=== PATIENT | female | born 1995 | race Caucasian/White ===

== ENCOUNTER 2017-04-21 04:43 | Emergency (ER) | payer MEDICAID, OTHER ==
[~2017-04-21] VITALS: Ht 160 cm; Wt 52.0 kg
[~2017-04-21 04:43] MED LIST: IBUP800T23 PO; PENI500T PO; TRAM50 PO
[2017-04-21 05:07] VITALS: BP 113/86; PULSE 92; RESP 20; TEMP 97.4; O2SAT 100
--- NOTE | 2017-04-21 05:37 | PD ---
HPI Chief Complaint: Medical Clearance Time Seen by Provider: 04:55 Travel History International Travel<30 days: No Contact w/Intl Traveler<30days: No Traveled to known affect area: No History of Present Illness HPI Patient is a 22-year-old female brought into the emergency department by the [place] [facility] [employer] [facility] due to safety after she was found unresponsive in the back of an Uber. Initially patient did not respond to multiple attempts to wake her up. Sternal rubs were performed and she fell on the became responsive. When she woke up she was disoriented and unaware where she was. She was unable able to answer basic questions and then became aggressive. Patient reports taking Depakote, lithium, Lexapro, Seroquel and Vyvanse this evening. She also reports that she had 3 shots of alcohol. Patient was deemed unable to make logical decisions for herself, she initially refused to go to the hospital with EMS and at that time she was [place] acted by the police. Patient denies any suicidal or homicidal ideations. She denies any physical complaints at this time. She reports a past medical history significant for schizophrenia, bipolar disorder, depression. She has a remote history of drug abuse 4-5 years ago, she denies any current use of illicit drugs. [facility] Past Medical History Bipolar Disorder: Yes Depression: Yes Diminished Hearing: No Schizophrenia: Yes ?: Not LMP: unknown : 2 Para: 2 Past Surgical History Gynecologic Surgery: Yes Tonsillectomy: Yes (WITH ADDENOIDS REMOVED) Social History Alcohol Use: Yes Tobacco Use: Yes (smoking 10 per day.) Substance Use: Yes (history of) Allergies-Medications (Allergen,Severity, Reaction): Coded Allergies: Benadryl (Verified Allergy, Severe, hives, 04/21/17) Reported Meds & Prescriptions Reported Meds & Active Scripts Active Ultram (Tramadol HCl) 50 Mg Tab 50 Mg PO Q6 PRN FOR PAIN Ibuprofen 800 Mg Tab 800 Mg PO Q6 PRN Pen Vk (Penicillin V Potassium) 500 Mg Tab 500 Mg PO QID Review of Systems ROS Limitations: Intoxication Except as stated in HPI: all other systems reviewed are Neg Psychiatric: Positive: Mood Disorder Physical Exam Narrative GENERAL: Thin, well-developed, alert, intoxicated-appearing female. Resting comfortably in no acute distress. SKIN: Focused skin assessment warm/dry. HEAD: Atraumatic. Normocephalic. EYES: Pupils equal and round. No scleral icterus. No injection or drainage. ENT: No nasal bleeding or discharge. Mucous membranes pink and moist. NECK: Trachea midline. No JVD. CARDIOVASCULAR: Regular rate and rhythm. No murmur appreciated. RESPIRATORY: No accessory muscle use. Clear to auscultation. Breath sounds equal bilaterally. GASTROINTESTINAL: Abdomen soft, non-tender, nondistended. Hepatic and splenic margins not palpable. MUSCULOSKELETAL: No obvious deformities. No clubbing. No cyanosis. No edema. NEUROLOGICAL: Awake and alert. No obvious cranial nerve deficits. Motor grossly within normal limits. Normal speech. PSYCHIATRIC: Defiant mood and affect; insight and judgment normal. Data Data Last Documented VS Vital Signs Date Time Temp Pulse Resp B/P Pulse Ox O2 Delivery O2 Flow Rate FiO2 04/21/17 11:25 88 16 92/56 100 Room Air 04/21/17 08:43 97.6 Orders Complete Blood Count With Diff (04/21/17 05:01) Comprehensive Metabolic Panel (04/21/17 05:01) Urinalysis - C+S If Indicated (04/21/17 05:01) Valproic Acid (Depakene) (04/21/17 05:01) [place] (Li) (04/21/17 05:01) Drug Screen, Random Urine (04/21/17 05:01) Alcohol (Ethanol) (04/21/17 05:01) Salicylates (Aspirin) (04/21/17 05:01) Tylenol (Acetaminophen) (04/21/17 05:01) Iv Access Insert/Monitor (04/21/17 06:32) Sodium Chlor 0.9% 1000 Ml Inj (Ns 1000 M (04/21/17 06:45) Sodium Chlor 0.9% 1000 Ml Inj (Ns 1000 M (04/21/17 06:45) Diet Regular Basic (04/21/17 Breakfast) Labs Laboratory Tests Test 04/21/17 05:00 White Blood Count 8.7 TH/MM3 Red Blood Count 4.89 MIL/MM3 Hemoglobin 14.0 GM/DL Hematocrit 42.5 % Mean Corpuscular Volume 86.9 FL Mean Corpuscular Hemoglobin 28.7 PG Mean Corpuscular Hemoglobin 33.1 % Concent Red Cell Distribution Width 15.6 % Platelet Count 372 TH/MM3 Mean Platelet Volume 7.4 FL Neutrophils (%) (Auto) 32.5 % Lymphocytes (%) (Auto) 58.8 % Monocytes (%) (Auto) 7.6 % Eosinophils (%) (Auto) 0.6 % Basophils (%) (Auto) 0.5 % Neutrophils # (Auto) 2.8 TH/MM3 Lymphocytes # (Auto) 5.1 TH/MM3 Monocytes # (Auto) 0.7 TH/MM3 Eosinophils # (Auto) 0.1 TH/MM3 Basophils # (Auto) 0.0 TH/MM3 CBC Comment AUTO DIFF Differential Total Cells 100 Counted Neutrophils % (Manual) 39 % Band Neutrophils % 1 % Lymphocytes % 56 % Monocytes % 3 % Basophils % 1 % Neutrophils # (Manual) 3.5 TH/MM3 Differential Comment FINAL DIFF MANUAL Atypical Lymphocytes % Platelet Estimate NORMAL Platelet Morphology Comment NORMAL Ovalocytes 1+ Urine Color LIGHT-YELLOW Urine Turbidity CLEAR Urine pH 6.0 Urine Specific [place] 1.004 Urine Protein NEG mg/dL Urine Glucose (UA) NEG mg/dL Urine Ketones NEG mg/dL Urine Occult Blood NEG Urine Nitrite NEG Urine Bilirubin NEG Urine Urobilinogen LESS THAN 2.0 MG/DL Urine Leukocyte Esterase NEG Urine WBC 1 /hpf Urine Squamous Epithelial 1 /hpf Cells Microscopic Urinalysis Comment CULT NOT INDICATED Sodium Level 140 MEQ/L Potassium Level 3.6 MEQ/L Chloride Level 106 MEQ/L Carbon Dioxide Level 27.3 MEQ/L Anion Gap 7 MEQ/L Blood Urea Nitrogen 6 MG/DL Creatinine 0.66 MG/DL Estimat Glomerular Filtration 114 ML/MIN Rate Random Glucose 98 MG/DL Calcium Level 8.5 MG/DL Total Bilirubin 0.3 MG/DL Aspartate Amino Transf 29 U/L (AST/SGOT) Alanine Aminotransferase 24 U/L (ALT/SGPT) Alkaline Phosphatase 133 U/L Total Protein 8.0 GM/DL Albumin 4.1 GM/DL Salicylates Level 3.8 MG/DL Urine Opiates Screen NEG Acetaminophen Level LESS THAN 2.0 MCG/ML Urine Barbiturates Screen NEG Valproic Acid (Depakene) Level 7 MCG/ML Urine Amphetamines Screen NEG Urine Benzodiazepines Screen NEG [place] Level 0.1 MEQ/L Urine Cocaine Screen NEG Urine Cannabinoids Screen NEG Ethyl Alcohol Level 353 MG/DL MDM Medical Decision Making Medical Screen Exam Complete: Yes Emergency Medical Condition: Yes Medical Record Reviewed: Yes Interpretation(s) Laboratory Tests Test 04/21/17 05:00 White Blood Count 8.7 TH/MM3 Red Blood Count 4.89 MIL/MM3 Hemoglobin 14.0 GM/DL Hematocrit 42.5 % Mean Corpuscular Volume 86.9 FL Mean Corpuscular Hemoglobin 28.7 PG Mean Corpuscular Hemoglobin 33.1 % Concent Red Cell Distribution Width 15.6 % Platelet Count 372 TH/MM3 Mean Platelet Volume 7.4 FL Neutrophils (%) (Auto) 32.5 % Lymphocytes (%) (Auto) 58.8 % Monocytes (%) (Auto) 7.6 % Eosinophils (%) (Auto) 0.6 % Basophils (%) (Auto) 0.5 % Neutrophils # (Auto) 2.8 TH/MM3 Lymphocytes # (Auto) 5.1 TH/MM3 Monocytes # (Auto) 0.7 TH/MM3 Eosinophils # (Auto) 0.1 TH/MM3 Basophils # (Auto) 0.0 TH/MM3 CBC Comment AUTO DIFF Urine Color LIGHT-YELLOW Urine Turbidity CLEAR Urine pH 6.0 Urine Specific [place] 1.004 Urine Protein NEG mg/dL Urine Glucose (UA) NEG mg/dL Urine Ketones NEG mg/dL Urine Occult Blood NEG Urine Nitrite NEG Urine Bilirubin NEG Urine Urobilinogen LESS THAN 2.0 MG/DL Urine Leukocyte Esterase NEG Urine WBC 1 /hpf Urine Squamous Epithelial 1 /hpf Cells Microscopic Urinalysis Comment CULT NOT INDICATED Sodium Level 140 MEQ/L Potassium Level 3.6 MEQ/L Chloride Level 106 MEQ/L Carbon Dioxide Level 27.3 MEQ/L Anion Gap 7 MEQ/L Blood Urea Nitrogen 6 MG/DL Creatinine 0.66 MG/DL Estimat Glomerular Filtration 114 ML/MIN Rate Random Glucose 98 MG/DL Calcium Level 8.5 MG/DL Total Bilirubin 0.3 MG/DL Aspartate Amino Transf 29 U/L (AST/SGOT) Alanine Aminotransferase 24 U/L (ALT/SGPT) Alkaline Phosphatase 133 U/L Total Protein 8.0 GM/DL Albumin 4.1 GM/DL Salicylates Level 3.8 MG/DL Urine Opiates Screen NEG Acetaminophen Level LESS THAN 2.0 MCG/ML Urine Barbiturates Screen NEG Valproic Acid (Depakene) Level 7 MCG/ML Urine Amphetamines Screen NEG Urine Benzodiazepines Screen NEG [place] Level 0.1 MEQ/L Urine Cocaine Screen NEG Urine Cannabinoids Screen NEG Ethyl Alcohol Level 353 MG/DL Vital Signs Date Time Temp Pulse Resp B/P Pulse Ox O2 Delivery O2 Flow Rate FiO2 04/21/17 05:14 92 20 04/21/17 05:07 97.4 92 20 113/86 100 Differential Diagnosis Mood disorder versus substance abuse versus psychosis versus intoxication versus other Narrative Course Patient is a 22-year-old female presented to the emergency Department under the [place] act. Patient is alert and oriented 3. Upon initial presentation to the emergency department, patient was verbally berating staff, acting defiant. Patient states that her is in [facility], she has 2 kids in foster care. She states she took her medications at their normal doses, she did not intend to harm herself by overdose. Labs ordered and pending. Labs reviewed, no acute findings. Urine drug screen is negative. Blood alcohol level is 353. Patient will be given IV fluids. She is medically cleared at this time. When patient is awake, alert, and clinically sober and able to demonstrate safe ambulation she will be discharged from the emergency department. Diagnosis Primary Impression: Acute alcohol intoxication Qualified Code: F10.920 - Acute alcohol intoxication, uncomplicated Referrals: Primary Care Physician Patient Instructions: Abuse of Alcohol (ED), Alcohol Intoxication (ED), General Instructions Additional Instructions: Avoid mixing alcohol with prescription medications Follow-up with your primary doctor Return to emergency department for any new or worsening symptoms Med/Other Pt SpecificInfo: No Change to Meds Disposition: 01 DISCHARGE HOME Condition: Stable Delia Delgado Apr 21, 2017 05:37
[2017-04-21 05:43] LABS: AUTOMATED NEUTROPHIL # 2.8 TH/MM3 (1.8-7.7); BASOPHIL % 0.5 % (0.0-2.0); EOSINOPHIL # 0.1 TH/MM3 (0-0.4); EOSINOPHIL % 0.6 % (0.0-4.0); HEMATOCRIT 42.5 % (35.0-46.0); LYMPH % 58.8 % (9.0-44.0); LYMPHOCYTE # 5.1 TH/MM3 (1.0-4.8); MEAN CELL VOLUME 86.9 FL (80.0-100.0); MEAN CORPUSCULAR HEMOGLOBIN 28.7 PG (27.0-34.0); MEAN CORPUSCULAR HGB CONC 33.1 % (32.0-36.0); MONO % 7.6 % (0.0-8.0); NEUT % 32.5 % (16.0-70.0); PLATELET COUNT 372 TH/MM3 (150-450); RED BLOOD COUNT 4.89 MIL/MM3 (4.00-5.30); RED CELL DISTRIBUTION WIDTH 15.6 % (11.6-17.2); WHITE BLOOD COUNT 8.7 TH/MM3 (4.0-11.0)
[2017-04-21 05:52] LABS: HEMO FLAGS AUTO DIFF
[2017-04-21 05:56] LABS: BLOOD, URINE NEG (NEG); GLUCOSE,URINE NEG (NEG); KETONE, URINE NEG (NEG); NITRITE,URINE NEG (NEG); SQUAMOUS EPITHELIAL CELL URINE 1 /hpf (0-5); URINE COLOR LIGHT-YELLOW (YELLW/STRAW)
[2017-04-21 05:57] LABS: COMMENT (UR) CULT NOT INDICATED; CULTURE IF INDICATED CULT NOT INDICATED
[2017-04-21 06:01] LABS: AMPHETAMINE, URINE NEG (NEG); BARBITURATES, URINE NEG (NEG); COCAINE, URINE NEG (NEG)
[2017-04-21 06:09] LABS: ANION GAP 7 MEQ/L (5-15); AST (GOT) 29 U/L (16-38); BICARBONATE 27.3 MEQ/L (21.0-32.0); BLOOD UREA NITROGEN 6 MG/DL (7-18); CHLORIDE 106 MEQ/L (98-107); GLOMERULAR FILTRATION RATE 114 ML/MIN (>89); POTASSIUM 3.6 MEQ/L (3.5-5.1); SODIUM (NA) 140 MEQ/L (136-145)
[2017-04-21 06:10] LABS: ALT (GPT) 24 U/L (9-42)
[2017-04-21 06:12] LABS: ALKALINE PHOSPHATASE 133 U/L (45-117); TOTAL BILIRUBIN ADULT 0.3 MG/DL (0.2-1.0)
[2017-04-21 06:17] LABS: ACETAMINOPHEN LESS THAN 2.0 MCG/ML (10.0-30.0)
[2017-04-21] MEDS ORDERED: SODIUM CHLOR 0.9% 1000 ML INJ 1,000 ML IV ONE ×2 (06:45)
[2017-04-21 07:02] LABS: BANDS 1 % (0-6); BASOPHILS 1 % (0-2); NEUTROPHIL # MANUAL DIFF 3.5 TH/MM3 (1.8-7.7); POLYS (SEG NEUTROPHILS) 39 % (16-70); WBC DIFF SAMPLE 100
[2017-04-21 07:03] LABS: OVALOCYTES 1+ (NORMAL); PLATELET ESTIMATE SMEAR NORMAL (NORMAL)
[2017-04-21 07:04] LABS: PLATELET MORPHOLOGY NORMAL (NORMAL); SCAN/DIFF FINAL DIFF MANUAL
[2017-04-21 08:43] VITALS: BP 89/52; PULSE 79; RESP 16; TEMP 97.6; O2SAT 96
[2017-04-21 11:25] VITALS: BP 92/56; PULSE 88; RESP 16; O2SAT 100
== END 2017-04-21 16:25 | disposition home or self-care (01) ==
LOC: NEPD 04:43
DX: F10.920 Alcohol use, unspecified with intoxication, uncomplicated (principal); F31.9 Bipolar disorder, unspecified; F20.9 Schizophrenia, unspecified; F17.200 Nicotine dependence, unspecified, uncomplicated
CPT/HCPCS: 80053; 80164; 80178; 80307; 81001; 85007; 85027; 96360; 99284; J7030